=== PATIENT | male | born 1950 | race Hispanic/Latino ===

== ENCOUNTER 2024-09-13 10:41 | Outpatient (CLI) | payer MEDICARE | END 2024-09-13 10:42 | disposition home or self-care (01) | LOC: ULT 10:41 | PROVIDERS: ATTEND Internal Medicine | DX: C91.10 Chronic lymphocytic leukemia of B-cell type not having achieved remission (principal); R16.1 Splenomegaly, not elsewhere classified | CPT/HCPCS: 76700 ==